=== PATIENT | female | born 1955 | race Caucasian/White ===

== ENCOUNTER 2017-02-07 06:56 | Day surgery (SDC) | END 2017-02-07 12:10 | disposition home or self-care (01) | DX: H25.12 Age-related nuclear cataract, left eye (principal); J45.909 Unspecified asthma, uncomplicated; I10 Essential (primary) hypertension; E66.9 Obesity, unspecified; Z68.23 Body mass index [BMI] 23.0-23.9, adult; Z88.6 Allergy status to analgesic agent; Z88.5 Allergy status to narcotic agent; Z88.8 Allergy status to other drugs, medicaments and biological substances | CPT/HCPCS: 66984; 82962; J0171; J0360; J1815; J2250; J2405; J3010; V2632; Z7512; Z7610 ==

== ENCOUNTER 2017-07-18 12:42 | Day surgery (SDC) | END 2017-07-18 19:51 | disposition home or self-care (01) ==

== ENCOUNTER 2017-08-08 06:01 | Day surgery (SDC) | END 2017-08-08 09:50 | disposition home or self-care (01) ==